=== PATIENT | female | born 1995 | race Asian ===

== ENCOUNTER → 2017-10-06 15:02 | Emergency (ER) | payer OTHER ==
[~2017-10-06 15:02] MED LIST: Azithromycin TAB* 250 MG PO ONE; cefTRIAXone VIAL(*) 250 MG VIAL IM ONE
[2017-10-06 15:11] VITALS: BP 123/67
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
[2017-10-07 08:59] LABS: Syphilis Index < 0.1 Index
[2017-10-07 14:35] LABS: Manual Entry Verification BM; Rapid HIV INT CONT QC Line Present; Rapid HIV Kit Lot# HO41001
== END | disposition home or self-care (01) ==
LOC: ED 15:02
DX: T76.21XA Adult sexual abuse, suspected, initial encounter (principal)
CPT/HCPCS: 36415; 86592; 86703; 86803; 87340; 96372; 99283; A9270-GY; J0696